=== PATIENT | male | born 2000 | race Two or more races ===

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

== ENCOUNTER 2024-03-14 07:31 | Emergency (ER) | payer OTHER ==
[~2024-03-14] VITALS: Ht 188 cm; Wt 79.6 kg
[2024-03-14 08:50] VITALS: BP 127/73; PULSE 79; RESP 16; TEMP 98.3; O2SAT 97
[2024-03-14] MEDS ORDERED: IBUP-1456 PO (09:07)
== END 2024-03-14 09:20 | disposition home or self-care (01) ==
LOC: ER 07:31
DX: S82.401A Unspecified fracture of shaft of right fibula, initial encounter for closed fracture (principal); Y99.8 Other external cause status; X58.XXXA Exposure to other specified factors, initial encounter; Y93.89 Activity, other specified; Y92.89 Other specified places as the place of occurrence of the external cause; J45.909 Unspecified asthma, uncomplicated
CPT/HCPCS: 73562